=== PATIENT | female | born 1980 | race Hispanic/Latino ===

== ENCOUNTER 2016-09-26 16:35 | Emergency (ER) | payer OTHER ==
[~2016-09-26] VITALS: Ht 154.9 cm; Wt 73.6 kg
[~2016-09-26 16:35] MED LIST: NPR500T PO; TAM75UDCAP PO; TYL325 PO
[2016-09-26] MEDS ORDERED: 0.9% Sodium Chloride 1,000 ML IV ONE (16:43)
[2016-09-26] MEDS ORDERED: predniSONE 20 mg Tablet PO ONE (16:45)
[2016-09-26 16:47] VITALS: BP 114/75; PULSE 68; RESP 25; O2SAT 100
[2016-09-26 16:51] LABS: BASOPHILS % (AUTO) 0.3 % (0-3); EOSINOPHILS % (AUTO) 1.6 % (0-5); MONOCYTES % (AUTO) 7.8 % (4-12); Mean Corpuscular Volume 88.3 fL (81-100); NEUTROPHILS % (AUTO) 59.7 % (40-74); Platelet Count 196 bil/L (150-400)
[2016-09-26 16:57] VITALS: BP 119/73; PULSE 68; RESP 26; O2SAT 100
[2016-09-26] MEDS ORDERED: FLUO40CA PO (17:01)
[2016-09-26] MEDS ORDERED: HYDR-4003 PO (17:01)
[2016-09-26] MEDS ORDERED: LORA0.5T PO (17:01)
--- NOTE | 2016-09-26 17:04 | DRSVH ---
PROCEDURE: X-RAY CHEST ONE VIEW, PORTABLE ([id number]) INDICATIONS: 36 year-old female with shortness of breath. TECHNIQUE: One view of the chest was acquired. COMPARISON: [facility], CR, XR CHEST 2VW, 12/03/2015, 0:44. [facility], CR, CHEST 2VW , 10/17/2014, 3:20 PM. FINDINGS: Surgical changes and devices: Cholecystectomy clips are again noted. Lungs and pleura: No pleural effusions or pneumothorax. Lungs are clear. Mediastinum: Mediastinal contours appear normal. Heart size is normal. Bones and chest wall: No suspicious bony lesions. Overlying soft tissues appear unremarkable. IMPRESSION: No acute cardiopulmonary disease. Dictated by: Aly Rod M.D. on 09/26/2016 at 16:58 Approved by: Aly Rod M.D. on 09/26/2016 at 16:58
--- NOTE | 2016-09-26 17:09 | ED.REPORT ---
HPI-Dyspnea / Wheezing Date of Service Sep 26, 2016 ED Provider: Evelyn Fuentes MD This is a 36 year old female with a history of hypertension and recent diagnosis fo Evart's disease presenting to the ED with shortness of breath that began just prior to arrival. Pt states she became nauseous, dizzy, SOB, and was unable to ambulate due to dyspnea. Also reports fatigue. Denies fever, chills, abdominal pain, constipation, diarrhea, bowel or bladder changes. Nursing Notes Stated Complaint: TROUBLE BREATHING Chief Complaint: General Complaint Nursing Notes Reviewed: Yes Allergies: Coded Allergies: codeine (Verified Adverse Reaction, Unknown, 07/27/15) UNCERTAIN OF MEDICATION OR REACTION Scheduled Fluoxetine (Fluoxetine) 40 Mg Capsule 40 MG PO DAILY Scheduled PRN Hydrocodone-Acetaminophen 5-325 mg (Hydrocodone-Acetaminophen 5-325 mg) 1 Each Tablet 1 TABLET PO Q4H PRN PRN For Pain Lorazepam (Lorazepam) 0.5 Mg Tablet 0.5 MG PO TID PRN PRN For Anxiety Naproxen (Naproxen) 500 Mg Tab 500 MG PO BID PRN PRN For Pain General Time Seen by MD: 16:38 Chief Complaint Shortness of breath Hx Obtained From: Patient Arrived By: Walk-in Sudden in Onset?: Yes Onset Occurred: Just prior to arrival Symptom Duration: Since onset Severity: Current: No pain currently Pertinent Negative: Pt denies other symptoms Recent Healthcare: No recent doctor visit, No recent hospitalization Similar Sx Previous: No Past Medical History Past Medical History Notes: Not taking control Past Medical History depression, being treated for it Evart's disease Past Surgical History compartment syndrome to rle Reports: Cholecystectomy Reports: Tubal ligation Smoking History Current Every Day Smoker Social History Alcohol Use: Denies alcohol use Drug Use: Denies drug use Other Social History: Occupation lives with , no work or school Ambulatory Status Independent Review of Systems Constitutional: Denies: Chills, Fever Respiratory: Reports: Shortness of breath, Denies: Non-productive cough Cardiovascular: Denies: Chest pain Complete sys rev & neg: except as marked. GI: Reports: Nausea, Denies: Constipation, Diarrhea, Vomiting Neurologic: Reports: Dizziness, Denies: Headache, Lightheaded, Numbness Physical Exam Initial Vital Signs Vital Signs (First) Date Time Temp Pulse Resp B/P Pulse Ox O2 Delivery O2 Flow Rate FiO2 09/26/16 16:47 68 25 114/75 100 Room Air 09/26/16 16:57 36.8 Initial VS: Reviewed Head / Eyes: Atraumatic, Normocephalic, PERRL ENT: Mucous membranes moist, Conjunctiva normal, No scleral icterus Abdomen / GI: Soft, Non-tender, No guarding, No rebound, No distention Extremities: Vascular intact, Neuro intact, No swelling, No tenderness Skin: Warm, Dry, No cyanosis Neurologic: Alert, Oriented, Nonfocal Psychiatric: Mood/affect normal, Behavior normal, Normal thought content General/Constitutional: Awake, Alert Neck: Atraumatic, Supple, No meningismus, Full range of motion, No swelling, Non-tender, No masses Respiratory / Chest: Breath sounds NL, Breath sounds = bilat, No respiratory distress, No rales, No rhonchi, No wheezing, No retractions, No stridor Cardiovascular: Heart rate NL, Regular rhythm, Heart sounds NL, Peripheral circulation NL Interpretation & Diagnostics Interpretation & Diagnostics: CHEST X-RAY IMPRESSION: No acute cardiopulmonary disease. Dictated by: Aly Rod M.D. on 09/26/2016 at 16:58 Approved by: Aly Rod M.D. on 09/26/2016 at 16:58 Lab Results Interpretation Result Diagram: 09/26/16 1642 09/26/16 1642 Test 09/26/16 16:20 09/26/16 16:42 09/26/16 18:42 Hold Soriano Top Tube Received (Received) White Blood Count 7.3th/mm3 (3.8-10.1) Red Blood Count 4.62mil/mm3 (3.90-5.20) Hemoglobin 14.3g/dL (12.0-15.6) Hematocrit 40.8% (35.0-46.0) Mean Corpuscular Volume 88.3fL (81-100) Mean Corpuscular Hemoglobin 31.0pg (27.0-35.0) Mean Corpuscular Hemoglobin Concent 35.0% (32.0-37.0) Red Cell Distribution Width 12.2% (12.3-15.4) Platelet Count 196bil/L (150-400) Neutrophils (%) (Auto) 59.7% (40-74) Lymphocytes (%) (Auto) 30.5% (14-46) Monocytes (%) (Auto) 7.8% (4-12) Eosinophils (%) (Auto) 1.6% (0-5) Basophils (%) (Auto) 0.3% (0-3) Sodium Level 137mEq/L (134-144) Potassium Level 3.8mEq/L (3.5-5.2) Chloride Level 100mEq/L (97-108) Carbon Dioxide Level 20mmol/L (18-29) Blood Urea Nitrogen 12mg/dL (6-20) Creatinine 0.67mg/dL (0.57-1.00) Estimat Glomerular Filtration Rate 141mL/min (>59) Glucose Level 95mg/dL (60-99) Calcium Level 9.1mg/dL (8.5-10.1) Total Bilirubin 0.2mg/dL (0.0-1.2) Aspartate Amino Transf (AST/SGOT) 30U/L (0-50) Alanine Aminotransferase (ALT/SGPT) 34U/L (0-32) Alkaline Phosphatase 111U/L (25-150) Total Protein 7.5g/dL (6.4-8.4) Albumin 4.5g/dL (3.4-5.0) Urine Color Yellow (YELLOW) Urine Appearance Clear (CLEAR,HAZY) Urine pH 7.0 (5.0-8.0) Urine Specific [place] 1.020 (1.003-1.035) Urine Protein Negativemg/dL (NEG,TRACE) Urine Glucose (UA) Negativemg/dL (NEGATIVE) Urine Ketones Negativemg/dL (NEGATIVE) Urine Occult Blood Trace (NEGATIVE) Urine Nitrite Negative (NEGATIVE) Urine Bilirubin Negative (NEGATIVE) Urine Urobilinogen Normalmg/dL (NORMAL) Urine Leukocyte Esterase Negative (NEGATIVE) Urine RBC 0-2/hpf (0-2) Urine WBC 0-5/hpf (0-5) Urine Epithelial Cells Few/hpf (NONE-MOD) Urine Crystals None seen (NONE SEEN) Urine Bacteria Few/hpf (NONE-FEW) Urine Hyaline Casts None/lpf (NONE) Urine Granular Casts None seen (NONE SEEN) Urine Waxy Casts None seen (NONE SEEN) Urine Red Blood Cell Casts None seen (NONE SEEN) Urine White Blood Cell Casts None seen (NONE SEEN) Urine Mucus None seen (None Seen) Urine Trichomonas None seen (NONE SEEN) Urine Yeast None (NONE SEEN) Urinalysis Comment None Urine Culture Reflexed Not indicated Re-Eval/Medical Decision Med Decision/Clinical Course 36-year-old female with very recent diagnosis of Nagi's disease here short of breath. Differential diagnosis includes but is not limited to anxiety attack versus addisonian crisis versus PE versus upper respiratory infection. Patient has been feeling extremely anxious with her recent diagnosis of Evart' s disease. She was not hypoxic, tachycardic, and has no risk factors for PE. At this time, she is PERC negative and does not require workup for PE. Labs are completely normal. Patient is feeling much better after a milligram of Ativan. I believe that she is having a panic attack secondary to her recent diagnosis. I have referred her to the [facility] resident clinic for closer follow- up. She is aware and amenable to discharge at this time. Re-Evaluation/Progress : Time of Eval: 18:42 Re-Evaluation/Progress Note: Discussed lab and imaging results, plan for d/c, all questions addressed. Counseled Regarding: Diagnosis, Lab results, Need for follow-up, When/why to return to ED Discharge & Departure Impression: Primary Impression: Anxiety Disposition: Home Discharge Condition All VS Reviewed: Yes Condition: Stable Patient Instructions: Generalized Anxiety Disorder (ED) Additional Instructions: Your lab and imaging results were reassuring today. Please call the residency clinic as soon as possible to schedule an appointment. Please explain to them that you were seen in the emergency department, and you need an appointment as soon as possible. Return to the emergency department if you develop any new or worsening symptoms. Referrals: Nancy Rader MD (PCP) [facility] Scribe Attestation Portions of this note were transcribed by Nakul Chavez. I, Dr. Fuentes personally performed the history, physical exam and medical decision-making; I reviewed and confirmed the accuracy of the information in the transcribed note. Signed by: Nakul Chavez. 09/26/2016, 23:00. copies to: [facility] Evelyn Fuentes MD Sep 26, 2016 17:08 NAKUL CHAVEZ Sep 26, 2016 17:17
[2016-09-26 17:30] VITALS: BP 111/68; PULSE 63; RESP 17; O2SAT 98
[2016-09-26 18:47] VITALS: BP 95/58; PULSE 84; RESP 12; O2SAT 99
[2016-09-26 19:01] LABS: APPEARANCE,URINE CLEAR (CLEAR,HAZY); COLOR,URINE YELLOW (YELLOW)
[2016-09-26 19:02] LABS: OCCULT BLOOD,URINE TRACE (NEGATIVE); UROBILINOGEN,URINE NORMAL (NORMAL)
[2016-09-26 19:19] VITALS: BP 114/70; PULSE 75; RESP 16; O2SAT 100
== END 2016-09-26 19:21 | disposition home or self-care (01) ==
LOC: SED 16:35
DX: F41.9 Anxiety disorder, unspecified (principal); E27.1 Primary adrenocortical insufficiency; I10 Essential (primary) hypertension; F17.200 Nicotine dependence, unspecified, uncomplicated; Z88.5 Allergy status to narcotic agent
CPT/HCPCS: 36415; 71010; 80053; 81000; 81025; 85025; 96361; 96374; 99285; J2060; J7030